=== PATIENT | male | born 1990 | race African-American/Black ===

== ENCOUNTER 2017-12-21 00:43 | Emergency (ER) | payer OTHER ==
[2017-12-21 01:15] LABS: INFLUENZA A AMPLIFICATION NEGATIVE (NEGATIVE); INFLUENZA B AMPLIFICATION NEGATIVE (NEGATIVE)
[2017-12-21] MEDS: AMOXICILLIN 500 MG CAP PO (02:18)
== END 2017-12-21 02:34 | disposition home or self-care (01) ==
LOC: M ED 00:43
DX: J01.90 Acute sinusitis, unspecified (principal); I25.10 Atherosclerotic heart disease of native coronary artery without angina pectoris
CPT/HCPCS: 87502

== ENCOUNTER → 2019-04-22 | Outpatient (REF) | payer OTHER ==
[~2019-04-22] MED LIST: AMOX875T PO; FLON1SPR
== END ==
LOC: M SFHCLERA 17:28
PROVIDERS: ATTEND Nurse Practitioner Family
DX: J02.9 Acute pharyngitis, unspecified (principal)